=== PATIENT | female | born 1980 | race Two or more races ===

== ENCOUNTER 2024-03-10 20:16 | Emergency (ER) | payer BC, MEDICAID | END 2024-03-10 22:15 | disposition left against medical advice (07) | LOC: JP.ED 20:16 | DX: Z53.21 Procedure and treatment not carried out due to patient leaving prior to being seen by health care provider (principal) ==

== ENCOUNTER 2024-03-16 01:17 | Emergency (ER) | payer BC, MEDICAID ==
[2024-03-16] MEDS ORDERED: predniSONE 1 MG Tab PO ONE (02:20)
[2024-03-16 02:30] LABS: CORONAVIRUS COVID-19 NAA NEGATIVE (NEGATIVE); INFLUENZA A NAA NEGATIVE (NEGATIVE); INFLUENZA B NAA NEGATIVE (NEGATIVE); RESPIRATORY SYNCYTIAL VIR NAA NEGATIVE (NEGATIVE)
[2024-03-16] MEDS: predniSONE 20 MG Tab PO ONE (02:30)
== END 2024-03-16 02:46 | disposition home or self-care (01) ==
LOC: JP.ED 01:17
DX: J40 Bronchitis, not specified as acute or chronic (principal); F17.210 Nicotine dependence, cigarettes, uncomplicated
CPT/HCPCS: 0241U; 99283; J7512

== ENCOUNTER 2024-08-15 18:06 | Emergency (ER) | payer BC, MEDICAID | END 2024-08-15 20:06 | disposition home or self-care (01) | LOC: JP.ED 18:06 | DX: S93.402A Sprain of unspecified ligament of left ankle, initial encounter (principal); S83.92XA Sprain of unspecified site of left knee, initial encounter; X50.1XXA Overexertion from prolonged static or awkward postures, initial encounter; Y93.01 Activity, walking, marching and hiking | CPT/HCPCS: 73562-26-LT; 73562-LT; 73610-26-LT; 73610-LT; 99283 ==